=== PATIENT | female | born 1965 | race Caucasian/White ===

== ENCOUNTER → 2016-09-09 | Outpatient (CLI) | payer OTHER | LOC: BMCIMAGING 08:26 | DX: Z12.31 Encounter for screening mammogram for malignant neoplasm of breast (principal); Z80.3 Family history of malignant neoplasm of breast | CPT/HCPCS: G0202 ==

== ENCOUNTER → 2017-04-04 | Outpatient (CLI) | payer OTHER ==
[~2017-04-04] MED LIST: GADOBUTROL 10 ML VIAL IVP ONE
== END ==
LOC: FIMAGING 09:12
PROVIDERS: ATTEND Internal Medicine
DX: Z80.3 Family history of malignant neoplasm of breast (principal)
CPT/HCPCS: 0159T; 77059; A9585; C8908

== ENCOUNTER → 2017-04-09 | Outpatient (CLI) | payer OTHER | LOC: FIMAGING 09:35 | PROVIDERS: ATTEND Orthopaedic Surgery | DX: M22.41 Chondromalacia patellae, right knee (principal); M23.321 Other meniscus derangements, posterior horn of medial meniscus, right knee; M23.351 Other meniscus derangements, posterior horn of lateral meniscus, right knee; M23.352 Other meniscus derangements, posterior horn of lateral meniscus, left knee; M94.8X6 Other specified disorders of cartilage, lower leg; M23.41 Loose body in knee, right knee; M25.462 Effusion, left knee ==

== ENCOUNTER → 2017-10-06 | Outpatient (CLI) | payer OTHER | LOC: FIMAGING 13:08 | PROVIDERS: ATTEND Internal Medicine | DX: Z12.31 Encounter for screening mammogram for malignant neoplasm of breast (principal); Z80.3 Family history of malignant neoplasm of breast ==

== ENCOUNTER → 2017-12-25 | Outpatient (CLI) | payer OTHER | LOC: BMCIMAGING 15:27 | PROVIDERS: ATTEND Internal Medicine | DX: Z13.820 Encounter for screening for osteoporosis (principal); M85.89 Other specified disorders of bone density and structure, multiple sites; M54.9 Dorsalgia, unspecified; Z78.0 Asymptomatic menopausal state; Z85.3 Personal history of malignant neoplasm of breast ==

== ENCOUNTER 2018-04-03 10:26 | Day surgery (SDC) | payer OTHER ==
--- NOTE | 2018-04-02 17:26 | GHP ---
DATE OF ADMISSION: 04/03/2018 CHIEF COMPLAINT: Left forefoot pain. HISTORY OF PRESENT ILLNESS: Patient is a 53-year-old with history of left forefoot pain and deformit y. Her pain is worsening and limiting her activities. PAST MEDICAL HISTORY: Unremarkable. PAST SURGICAL HISTORY: Positive for gastrointestinal surgery. SOCIAL HISTORY: Negative for tobacco use. FAMILY HISTORY: Noncontributory. MEDICATIONS: Include amitriptyline. ALLERGIES: She lists no drug allergies. PHYSICAL EXAMINATION: GENERAL: She is alert and oriented x3, in no acute distress. HEENT: Head is normocephalic. Pupils equal, round, reactive to light. Extraocular eye movements intact. NECK: S upple. No JVD or lymphadenopathy. CHEST: Clear to auscultation. HEART: Regular rate and rhythm. No murmurs or gallops. ABDOMEN: Soft, nontender, nondistended. EXTREMITIES: Exam reveals hypermob ile hallux valgus deformity with gastrocnemius contracture. ASSESSMENT: Left hypermobile hallux valgus/symptomatic bunion. PLAN: Patient is scheduled to undergo modified Lapidus procedure and gastroc recession. /[id number]/MODL
[2018-04-03] MEDS ORDERED: BUPIVACAINE 0.5% 30 ML SDV ONE (10:56)
[2018-04-03] MEDS ORDERED: MIDAZOLAM 2 MG/2 ML VIAL ONE (11:19)
[2018-04-03] MEDS ORDERED: LIDOCAINE 1% 2 ML INJ ID PRN (11:25)
[2018-04-03] MEDS ORDERED: LR 1,000 ML IV ONE (11:25)
--- NOTE | 2018-04-03 11:25 | PDANEPAE ---
ANE Past Medical History - Cardiovascular History Hx Hypertension: No Hx Arrhythmias: No Hx Chest Pain: No Hx Coronary Artery / Peripheral Vascular Disease: No Hx CHF / Valvular Disease: No Hx Palpitations: No Cardiovascular History Comment: states thinks remembers hearing she has mild MVP - Pulmonary History Hx COPD: No Hx Asthma/Reactive Airway Disease: No Hx Recent Upper Respiratory Infection: No Hx Oxygen in Use at Home: No Hx Sleep Apnea: No Sleep Apnea Screening Result - Last Documented: Negative - Neurologic History Hx Cerebrovascular Accident: No Hx Seizures: No Hx Dementia: No - Endocrine History Hx Diabetes: No - Renal History Hx Renal Disorders: No Renal History Comment: recent UTI - Liver History Hx Hepatic Disorders: No - Neurological & Psychiatric Hx Hx Neurological and Psychiatric Disorders: No - Cancer History Hx Cancer: No - Congenital Disorder History Hx Congenital Disorders: No - GI History Hx Gastrointestinal Disorders: No - Other Health History Other Health History: glasses for reading. osteoarthritis - Chronic Pain History Chronic Pain: No - Surgical History Prior Surgeries: hysterectomy, 2010. conroma removal on finger. wisdom teeth ANE Review of Systems Review of Systems: - Exercise capacity METS (RN): 5 METS ANE Patient History - Allergies Allergies/Adverse Reactions: No Known Allergies Allergy (Verified 03/20/18 12:33) - Home Medications Home Medications: Adult One Daily Multivit Tab 03/20/18 [Last Taken Unknown] Amitriptyline HCl 03/20/18 [Last Taken Unknown] Glucosamine Sulf/Chondroitin A 03/20/18 [Last Taken Unknown] Vitamin D3 03/20/18 [Last Taken Unknown] - Smoking Hx Smoking Status: Never smoked - Family Anes Hx Family Hx Anesthesia Complications: none ANE Labs/Vital Signs - Vital Signs Height: 162.56 cm Weight: 83.915 kg ANE Physical Exam - Airway Mallampati Score: Class 2 - ASA Status ASA Status: II ANE Anesthesia Plan Anesthesia Plan: GA w LMA [facility] Anesthesia: popliteal SNB
[2018-04-03] MEDS ORDERED: ROPIVACAINE HCL 150 MG/30 ML INJ ONE ×2 (11:29)
[2018-04-03] MEDS ORDERED: ceFAZolin 2 GM/DEXTROSE 100 ML IV ONE (12:01)
--- NOTE | 2018-04-03 12:03 | POSTOPPROG ---
Post Op Note Date of Operation: 04/03/18 Surgeon: Carlos Sal Anesthesia: GET(General Endotracheal), LMA Pre-op Diagnosis: L hallux valgus/bunion, gastroc contracture Post-op Diagnosis: same Procedure: L lapidus, gastroc recession Inf/Abcess present in the surg proc area at time of surgery?: No EBL: Minimal
[2018-04-03] MEDS ORDERED: fentaNYL 100 MCG/2 ML INJ ONE ×3 (12:19→14:17)
[2018-04-03] MEDS ORDERED: PROPOFOL 200 MG/20 ML VIAL ONE (12:19)
[2018-04-03] MEDS ORDERED: ONDANSETRON 4 MG/2 ML VIAL ONE ×2 (12:21)
[2018-04-03] MEDS ORDERED: METOCLOPRAMIDE 10 MG/2 ML VIAL ONE (12:22)
[2018-04-03] MEDS ORDERED: oxyCODONE IR 5 MG TAB PO PRN (14:11)
[2018-04-03] MEDS ORDERED: NALOXONE HCL 0.4 MG/ML INJ IVP PRN (14:11)
[2018-04-03] MEDS ORDERED: PROMETHAZINE HCL 25 MG/ML INJ IVP PRN (14:11)
[2018-04-03] MEDS ORDERED: fentaNYL 100 MCG/2 ML INJ IVP PRN (14:11)
[2018-04-03] MEDS ORDERED: HYDROCODONE/APAP 5/325 TAB PO PRN (14:11)
[2018-04-03] MEDS ORDERED: ONDANSETRON 4 MG/2 ML VIAL IVP PRN (14:11)
[2018-04-03] MEDS ORDERED: LR 500 ML IV PRN (14:11)
--- NOTE | 2018-04-03 14:12 | POSTANESTH ---
Post Anesthetic Evaluation Cardiovascular Status: Normal, Stable Respiratory Status: Normal, Stable Level of Consciousness/Mental Status: Can Participate in Eval Pain Control: Adequate, Prn Tx Ordered Nausea/Vomiting Control: Adequate, Prn Tx Ordered Complications Possibly Related to Anesthesia: None Noted
[2018-04-03] MEDS ORDERED: HYDROCODONE/APAP 5/325 TAB ONE (14:18)
--- NOTE | 2018-04-03 15:22 | GOP ---
DATE OF OPERATION: 04/03/2018 SURGEON: Carlos Sal MD ANESTHESIA: General plus popliteal block performed by the anesthesiologist at my request for postope rative pain management. PREOPERATIVE DIAGNOSIS: 1. Left hypermobile hallux valgus/symptomatic bunion. 2. Left gastrocnemius contracture. 3. Left midfoot instability. POSTOPERATIVE DIAGNOSIS: 1. Left hypermobile hallux valgus/symptomatic bunion. 2. Left gastrocnemius contracture. 3. Left midfoot instability. PROCEDURE PERFORMED: 1. Left modified Lapidus procedure (1st tarsometatarsal arthrodesis, distal soft tissue reconstructi on and bunionectomy). 2. Left inner cuneiform arthrodesis. 3. Left gastrocnemius recession. 4. Local bone graft. FINDINGS: ESTIMATED BLOOD LOSS: Minimal. INDICATIONS: The patient is a 53-year-old with history of progressive left medial forefoot pain and deformity. Clinically and radiographically, she was noted to have a hypermobile hallux valgus and sy mptomatic bunion. Based on her persistence of symptoms refractory to nonoperative treatment, she was interested in pursuing operative treatment. From an operative standpoint, modified left procedure a nd gastrocnemius recession is recommended. The patient acknowledged she understood the potential ris ks of the operation including, but not limited to, bleeding, infection, neurovascular damage includin g loss of limb function, malunion, nonunion, pain or functional limitations despite operative treatme nt, recurrent deformity, and anesthetic risks. She acknowledged she understood the potential risks o f the planned procedure, and postoperative plan well, and had all questions answered prior to surgery . She gave her consent for the operative procedure. DESCRIPTION OF PROCEDURE: The patient was brought to the operating room after IV antibiotics were ad ministered. She was placed in a supine position where general anesthetic was administered. In preop erative holding, the patient had a popliteal block performed by the anesthesiologist at my request fo r postoperative pain management. After induction of general anesthetic, a tourniquet was placed on t he left thigh, and the left lower extremity was prepped and draped in standard sterile fashion. Afte r marking the incisions and Jonathan wrap exsanguination, tourniquet was inflated to 250. Attention was initially directed toward the gastroc recession. A longitudinal incision was made nguyễn g the medial aspect of the lower leg at the level of the mid substance of the gastrocnemius. Skin an d subcutaneous tissue were sharply incised. The superficial posterior compartment fascia was incised in line with the skin incision. The interval between the gastroc and soleus was bluntly dissected. Utilizing a speculum for retraction, the anterior tendon of the gastrocnemius was transversely incis ed. Favorable dorsiflexion was achieved. The subcutaneous tissue was closed with 3-0 Vicryl suture in interrupted fashion. Skin was closed with 4-0 nylon interrupted sutures. A longitudinal incision was made along the dorsomedial aspect of the midfoot. Skin and subcutaneous tissue were sharply incised. Sharp dissection was carried just lateral to the extensor hallucis long us tendon, down to the 1st metatarsal. Dissection more proximally was carried at the subperiosteal l evel, exposing the 1st inner cuneiform joint and intermetatarsal base. Care was taken to avoid damag e to the neurovascular bundle. Utilizing a chisel rongeur and curettes, all articular cartilage at t 1st tarsometatarsal, 1st inner cuneiform and intermetatarsal base was removed. In preparation for arthrodesis, subchondral bone was drilled multiple times with a 2.0 mm drill bit and further roughen ed with a chisel. A 4 mm bur was utilized to create a trough on the dorsal aspect of the 1st metatar torrey and medial cuneiform. A longitudinal incision was then made along the medial aspect of the 1st MTP joint. Skin and subcuta neous tissue were sharply incised down to the capsular level, taking care to avoid damage to the digi hermes nerve branch. The capsule was longitudinally incised and reflected plantarly and dorsally. A sa w was used to remove the bony prominence along the medial aspect of the metatarsal head. A small incision was then made in the 1st interdigital space at the MTP level. Dissection was boom d down to the lateral capsule and the MTP joint was transversely incised. Using tenotomy scissors, t he sesamoid metatarsal ligaments were released proximally and distally. This allowed for favorable c orrection of the 1st metatarsal. Holding the 1st metatarsal in a properly reduced position, 4.0 mm cortical screws were placed in lag fashion from the dorsal aspect of 1st metatarsal and the plantar aspect of the medial cuneiform, dors al aspect of the medial cuneiform to the plantar aspect of the 1st metatarsal and medial aspect of th e 1st metatarsal base into the 2nd metatarsal base and medial aspect of the medial cuneiform into the middle cuneiform. Fluoroscopic views confirmed favorable hardware and arthrodesis positions. A bur was then utilized to create a trough on the dorsal aspect of the 1st tarsometatarsal and inner cunei form joints. Bone graft harvested from drill bit reamings was impacted into place into these holes a s a "stress strain relieving bone graft." Capsulorrhaphy was then performed. A V-shaped portion of the plantar capsule at the sesamoid level w as removed. The capsule was then tightened in multiple points with 0 PDS suture. Attention was directed toward closure. The deep tissue was closed with 2-0 Vicryl suture in interrup kerline fashion, subcutaneous tissue closed with 3-0 Vicryl suture in an interrupted fashion and the skin closed with 4-0 nylon interrupted sutures. 0.5% Marcaine without epinephrine was injected at the ga strocnemius incision site. The wounds were dressed with sterile Adaptic, 4 x 4 and Webril, and leg w as placed in a below-knee splint. The patient tolerated the procedure well, was taken to the recover y room, extubated in stable condition postoperatively. All sponge, needle, and instrument counts wer e reported as being correct. DRAINS: None. COMPLICATIONS: None. PLAN: The patient would be discharged home nonweightbearing on her operative extremity. /[id number]/MODL
[2018-04-03 15:35] VITALS: BP 106/68
== END 2018-04-03 15:55 | disposition home or self-care (01) ==
LOC: FSGY 10:26
PROVIDERS: ATTEND Orthopaedic Surgery Foot and Ankle Surgery
DX: M20.12 Hallux valgus (acquired), left foot (principal); M62.462 Contracture of muscle, left lower leg; M25.375 Other instability, left foot
CPT/HCPCS: C1713; J0690; J2250; J2405; J2704; J2765; J2795; J3010

== ENCOUNTER → 2018-10-26 | Outpatient (CLI) | payer OTHER | LOC: FIMAGING 11:33 | PROVIDERS: ATTEND Internal Medicine | DX: Z12.31 Encounter for screening mammogram for malignant neoplasm of breast (principal); Z80.3 Family history of malignant neoplasm of breast ==